=== PATIENT | female | born 1995 | race African-American/Black ===

== ENCOUNTER 2017-05-02 21:09 | Emergency (ER) | payer MEDICARE ==
[~2017-05-02] VITALS: Ht 157.5 cm; Wt 110.7 kg
[2017-05-02 22:53] LABS: Urine Bilirubin Negative (Negative); Urine Blood Negative /uL (Negative); Urine Color Yellow (Yellow); Urine Glucose Normal (Normal); Urine Ketone Negative (Negative); Urine Nitrite Negative (Negative); Urine RBC None Seen /hpf (0 - 4); Urine Squamous Epithelial Cell FEW /hpf (<5)
[2017-05-03 04:08] VITALS: BP 143/85
== END 2017-05-03 05:50 | disposition left against medical advice (07) ==
LOC: ER 21:19
DX: R10.9 Unspecified abdominal pain (principal); Z53.21 Procedure and treatment not carried out due to patient leaving prior to being seen by health care provider
CPT/HCPCS: 74176; 81001; 81025

== ENCOUNTER 2017-09-04 00:51 | Emergency (ER) | payer MEDICARE, OTHER ==
[~2017-09-04] VITALS: Ht 157.5 cm; Wt 112.5 kg
[2017-09-04] MEDS ORDERED: IPRATROPIUM BROM 0.5 MG/2.5ML INH SOL NEB ONE (01:00)
[2017-09-04] MEDS ORDERED: ALBUTEROL SULF 2.5 MG/0.5ML(0.5%) NEB SOLN NEB ONE ×2 (01:00→04:45)
[2017-09-04 03:17] VITALS: BP 153/102
[2017-09-04] MEDS ORDERED: DEXAMETHASONE SOD PHOS 10MG/1ML VIAL INJ IM ONE (04:00)
[2017-09-04] MEDS ORDERED: THEOPHYLLINE 80 MG/15ml ORAL Elixir PO ONE (04:45)
[2017-09-04] MEDS ORDERED: BUDESONIDE (INHALATION) 0.5 MG/2 ML NEB NEB ONE (04:45)
== END 2017-09-04 05:09 | disposition home or self-care (01) ==
LOC: ER 00:53
DX: J45.901 Unspecified asthma with (acute) exacerbation (principal); J44.9 Chronic obstructive pulmonary disease, unspecified
CPT/HCPCS: 71045; 94640; 96372; 99284; J1100

== ENCOUNTER 2018-07-18 07:57 | Emergency (ER) | payer OTHER ==
[~2018-07-18] VITALS: Ht 157.5 cm; Wt 116.1 kg
[2018-07-18] MEDS ORDERED: IPRATROPIUM BROM 0.5 MG/2.5ML INH SOL NEB ONE ×2 (08:30→17:00)
[2018-07-18] MEDS ORDERED: ALBUTEROL SULF 2.5 MG/0.5ML(0.5%) NEB SOLN NEB ONE ×2 (08:30→17:00)
[2018-07-18] MEDS ORDERED: methylPREDNISolone SOD SUCC 125 MG/2 ML VL IV ONE (10:00)
[2018-07-18] MEDS ORDERED: SODIUM CHLORIDE 0.9% 1,000 ML IV ONE (10:00)
[2018-07-18] MEDS ORDERED: SODIUM CHLORIDE 0.9% 1,000 ML IVB ONE (10:00)
[2018-07-18 10:39] LABS: Basophils # (auto) 0 uL; Basophils % (auto) 0.2 % (0.0-2.0); Eosinophils # (auto) 0 uL; Eosinophils % (auto) 0.3 % (0.0-7.0); Hematocrit 34.5 % (36.0-46.0); Hemoglobin 11.3 g/dL (12.2-16.2); Lymphocytes # (auto) 0.7 uL; Lymphocytes % (auto) 9.3 % (10.0-50.0); Mean Corpuscular Hemoglobin 27.2 pg (28.0-32.0); Mean Corpuscular Hgb Conc. 32.6 g/dL (32.0-36.0); Mean Corpuscular Volume 83.4 fL (80.0-100.0); Monocytes # (auto) 0.4 uL; Neutrophils % (auto) 84.2 % (37.0-80.0); Platelet Count (auto) 247 10^3/uL (140-450); Red Blood Cells 4.14 10^6/uL (4.0-5.20); White Blood Cell 7.1 10^3/uL (4.4-10.8)
[2018-07-18 11:25] LABS: BUN/Creatinine Ratio 9.4; Calcium 8.2 mg/dL (8.5-10.1); Magnesium 1.8 mg/dL (1.6-2.6); Potassium 3.4 mmol/L (3.5-5.1)
[2018-07-18] MEDS ORDERED: ACETAMINOPHEN 500 MG TAB PO ONE (11:45)
[2018-07-18] MEDS ORDERED: POTASSIUM EFFERVESENT TAB 25 MEQ PO ONE (11:45)
[2018-07-18 11:57] LABS: Urine Bacteria NONE SEEN /hpf (None Seen); Urine Blood Negative /uL (Negative); Urine Mucus FEW (None Seen); Urine Specific Gravity 1.013 (1.001-1.035); Urine WBC 2 /hpf (0 - 5)
[2018-07-18] MEDS ORDERED: IOHEXOL 350 MG/ML 100ML IJ ONE (16:09)
[2018-07-18 17:42] VITALS: BP 123/82
== END 2018-07-18 18:05 | disposition left against medical advice (07) ==
LOC: ER 07:57
DX: O99.512 Diseases of the respiratory system complicating pregnancy, second trimester (principal); O26.892 Other specified pregnancy related conditions, second trimester; J45.901 Unspecified asthma with (acute) exacerbation; R00.0 Tachycardia, unspecified; R51 Headache; Z3A.21 21 weeks gestation of pregnancy
CPT/HCPCS: 36415; 71275; 80048; 81001; 83735; 84443; 85025; 85379; 93005; 94640; 94761; 96374; 99284; J2930; J7030; J7611; J7644; Q9967

== ENCOUNTER 2019-05-27 13:02 | Emergency (ER) | payer OTHER ==
[~2019-05-27] VITALS: Ht 157.5 cm; Wt 113.4 kg
[2019-05-27 13:09] VITALS: BP 140/99
[2019-05-27 13:42] LABS: Urine Bacteria NONE SEEN /hpf (None Seen); Urine Blood Negative /uL (Negative); Urine Mucus FEW (None Seen); Urine Specific Gravity 1.025 (1.001-1.035); Urine WBC 3 /hpf (0 - 5)
== END 2019-05-27 17:00 | disposition left against medical advice (07) ==
LOC: ER 13:02
DX: O23.41 Unspecified infection of urinary tract in pregnancy, first trimester (principal); O99.511 Diseases of the respiratory system complicating pregnancy, first trimester; J45.909 Unspecified asthma, uncomplicated; Z3A.01 Less than 8 weeks gestation of pregnancy
CPT/HCPCS: 36415; 76801; 81001; 81025; 84702

== ENCOUNTER 2022-09-03 12:04 | Emergency (ER) | payer OTHER, MEDICAID ==
[~2022-09-03] VITALS: Ht 157.5 cm; Wt 118.1 kg
[2022-09-03] MEDS ORDERED: ACETAMINOPHEN 500 MG TAB PO ONE (13:15)
[2022-09-03] MEDS ORDERED: HYDROcodone-ACET 10/325MG TAB PO ONE (14:00)
[2022-09-03] MEDS ORDERED: ONDANSETRON HCL 4 MG/2 ML VIAL IM ONE (14:45)
[2022-09-03] MEDS ORDERED: cloNIDine HCL 0.1 MG TAB PO ONE (15:45)
[2022-09-03] MEDS ORDERED: HYDR-4798 PO (15:51)
[2022-09-03] MEDS ORDERED: IBUP800T26 PO (15:51)
[2022-09-03 16:13] VITALS: BP 162/113
[2022-09-03] MEDS ORDERED: TETANUS-DIPTH-ACEL PERTUSSIS 0.5ML SYR Tdap IM ONE (16:15)
[2022-09-03] MEDS ORDERED: NEOMYCIN-BACITRACIN-POLYM 15GM TOP OINT TOP SCH ×2 (22:00)
== END 2022-09-03 16:36 | disposition home or self-care (01) ==
LOC: EDBD 12:04 → ER 12:04
DX: S16.1XXA Strain of muscle, fascia and tendon at neck level, initial encounter (principal); S00.212A Abrasion of left eyelid and periocular area, initial encounter; V43.52XA Car driver injured in collision with other type car in traffic accident, initial encounter; Y93.89 Activity, other specified; Y92.488 Other paved roadways as the place of occurrence of the external cause; Y99.8 Other external cause status
CPT/HCPCS: 70450; 72125; 90471; 90715; 96372; 99285; J2405

== ENCOUNTER 2024-11-18 20:34 | Emergency (ER) | payer MEDICAID, MEDICARE, OTHER ==
[~2024-11-18] VITALS: Ht 160 cm; Wt 142.5 kg
[~2024-11-18 20:34] MED LIST: HYDR-4798 PO; IBUP-1455 PO
[2024-11-18] MEDS: IPRATROPIUM BROM 0.5 MG/2.5ML INH SOL NEB ONE (21:14)
[2024-11-18] MEDS: methylPREDNISolone SOD SUCC 125 MG/2 ML VL IM ONE (21:14)
[2024-11-18] MEDS: ALBUTEROL SULF 2.5 MG/0.5ML(0.5%) NEB SOLN NEB ONE (21:14)
[2024-11-18] MEDS: ONDANSETRON HCL 4 MG/2 ML VIAL IM ONE (21:21)
[2024-11-18] MEDS: ONDANSETRON ODT 4 MG TAB PO ONE (21:21)
[2024-11-18 22:00] VITALS: TEMP 98.2
[2024-11-18 22:21] VITALS: BP 166/116; PULSE 105; RESP 16; O2SAT 96
--- NOTE | 2024-11-18 22:30 | ED.PDOC ---
SOB-HPI HPI Comments C/C of asthma flare up for the past two days. Pt breathing even and unlabored on room air, satting at 96%. Wheezes noted. PMH of asthma. VSS. Patient also hypertensive on triage she notes history of hyper tension she states did not take her medications today patient states she takes a pink pill it begins with the C it is 1 mg does not remember the knee. Denies chest pain, difficulty in breathing, headache, numbness, weakness, or slurred speech. 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 Family History Family History: Family hx of Cancer Social History Smoker: Non-Smoker Alcohol: Occasionally Drugs: Denies Drug Use Lives In: Home Constitutional: denies: chills, diaphoresis, fatigue, fever, malaise, sweats, weakness, others EENTM: denies: blurred vision, double vision, ear bleeding, ear discharge, ear drainage, ear pain, ear ringing, eye pain, eye redness, hearing loss, mouth pain, mouth swelling, nasal discharge, nose bleeding, nose congestion, nose pain, photophobia, tearing, throat pain, throat swelling, voice changes, others Respiratory: reports: cough, wheezing; denies: hemoptysis, orthopnea, SOB at rest, shortness of breath, SOB with excertion, stridor, others Cardiovascular: denies: chest pain, dizzy spells, diaphoresis, Dyspnea on exertion, edema, irregular heart beat, left arm pain, lightheadedness, palpitations, PND, syncope, others Gastrointestinal: denies: abdomen distended, abdominal pain, blood streaked bowels, constipated, diarrhea, dysphagia, difficulty swallowing, hematemesis, melena, nausea, poor appetite, poor fluid intake, rectal bleeding, rectal pain, vomiting, others Genitourinary: denies: abnormal vagina bleeding, burning, dyspareunia, dysuria, flank pain, frequency, hematuria, incontinence, pain, , vagina discharge, urgency, others Neurological: denies: dizziness, fainting, headache, left sided numbness, left sided weakness, numbness, paresthesia, pre-existing deficit, right sided numbness, right sided weakness, seizure, speech problems, tingling, tremors, weakness, others Musculoskeletal: denies: back pain, gout, joint pain, joint swelling, muscle pain, muscle stiffness, neck pain, others Integumetry: denies: bruises, change in color, change in hair/nails, dryness, laceration, lesions, lumps, rash, wounds, others Allergic/Immunocompromised: denies: Difficulty Healing, Frequent Infections, Hives, Itching, others Hematologic/Lymphatic: denies: anemia, blood clots, easy bleeding, easy bruising, swollen glands, others Endocrine: denies: excessive hunger, excessive sweating, excessive thirst, excessive urination, flushing, intolerance to cold, intolerance to heat, unexplained weight gain, unexplained weight loss, others Psychiatric: denies: anxiety, bipolar disorder, depression, hopeless, panic disorder, schizophrenia, sleepless, suicidal, others Physical Exam General Appearance: No Apparent Distress, Normal HEENT: Normal ENT Inspection, Pharynx Normal, TMs Normal Neck: Full Range of Motion, Non-Tender Respiratory: Lungs Clear, No Respiratory Distress, Normal Breath Sounds Cardiovascular: No Edema, No JVD, No Murmur, No Gallop, Normal Peripheral Pulses, Regular Rate/Rhythm Breast Exam: Deferred Gastrointestinal: No Organomegaly, Non Tender, No Pulsatile Mass, Normal Bowel Sounds, Soft Genitalia: Deferred Pelvic: Deferred Rectal: Deferred Extremities: Normal capillary refill, Normal inspection, Normal range of motion, Non-tender, No pedal edema Musculoskeletal : Apperance: Normal Neurologic: Alert, 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 Was a procedure done?: No Differential Dx Differential Diagnosis: Asthma, Bronchitis, Pneumonia X-Ray, Labs, Meds, VS Vital Signs Date Time Temp Pulse Resp B/P (MAP) Pulse Ox O2 Delivery O2 Flow Rate FiO2 11/18/24 22:21 105 16 96 Room Air 11/18/24 22:21 105 166/116 (133) 11/18/24 22:00 98.2 105 16 167/118 (134) 96 98.2 11/18/24 21:13 20 98 Room Air* 0 21 11/18/24 21:09 18 96 Room Air* 0 11/18/24 21:09 99.0 106 18 156/68 (97) 96 99.0 Current Medications Medications (Trade) Dose Ordered Sig/Dean Route Start Time Stop Time Status Last Admin Albuterol (Ventolin Medneb) 5 mg ONCE ONCE NEB 11/18/24 21:15 11/18/24 21:16 DC 11/18/24 21:14 Ipratropium [place] (Atrovent Medneb) 0.5 mg ONCE ONCE NEB 11/18/24 21:15 11/18/24 21:16 DC 11/18/24 21:14 Methylprednisolone Sodium Succinate (Solu Medrol) 125 mg ONCE ONCE IM 11/18/24 21:15 11/18/24 21:16 DC 11/18/24 21:14 Ondansetron HCl (Zofran) 4 mg ONCE ONCE IM 11/18/24 21:15 11/18/24 21:16 DC 11/18/24 21:21 Ondansetron HCl (Zofran Po) 8 mg ONCE ONCE PO 11/18/24 21:15 11/18/24 21:16 DC 11/18/24 21:21 X-Ray, Labs, Meds, VS Comment Patient received DuoNeb x1 with good results lung sounds clear equal and bilateral. Patient requesting discharge at this time states she feels better. Patient is slightly hypertensive on discharge she does state history of high blood pressure she notes forgot to take her medications today. PATIENT GIVEN HER DOSE BENAZEPRIL 10 MG P.O. PRIOR TO DISCHARGE Denies chest pain, shortness of breath, difficulty breathing, weakness, numbness, headache, slurred speech, or any focal neuro deficits. Advised her to follow up with her primary care doctor in 2 days as neede, ER return precautions given patient indicates understanding and agrees with discharge plan of care. Time of 1ST Reevaluation: 22:26 Reevaluation 1ST: Improved Patient Education/Counseling: Diagnosis, Treatment, Prognosis, Need For Follow Up Family Education/Counseling: No Family Present Departure 1 Departure Time of Disposition: 22:29 Impression: Primary Impression: Acute asthma Additional Impression: Hypertension Qualified Codes: I10 - Essential (primary) hypertension Disposition: 01 HOME / SELF CARE / HOMELESS Condition: Stable Discharged With: Self Critical Care Note Critical Care Time?: No Stability Stability form required: No Heart Score Heart Score: Heart Score Response (Comments) Value History N/A 0 EKG N/A 0 Age <45 0 Risk Factors N/A 0 Troponin N/A 0 Total 0 DANIEL PAREDES Nov 18, 2024 22:30
[2024-11-18] MEDS: BENAZEPRIL HCL 10 MG TAB PO ONE (23:01)
[2024-11-18] MEDS ORDERED: ALBU1.258 IN (23:11)
== END 2024-11-18 23:05 | disposition home or self-care (01) ==
LOC: ER 20:34
DX: J45.909 Unspecified asthma, uncomplicated (principal); I10 Essential (primary) hypertension
CPT/HCPCS: 94640; 96372; 99284; J2405; J2919; Q0162